=== PATIENT | female | born 1975 | race Caucasian/White ===

== ENCOUNTER 2017-01-14 06:15 | Day surgery (SDC) | payer OTHER ==
[~2017-01-14] VITALS: Ht 170.2 cm; Wt 108.0 kg
--- NOTE | ~2017-01-14 | S ---
[facility] [place] [address] SURGICAL PATH RPT PROCEDURE Name: RUTHY DUBOSE Amanda Room #: DEP [facility] Constance.#: [id number] Admission: 01/14/17 Date of : 75 Discharge: 01/15/17 Report #: [id number] Path Case #: [id number] PATHOLOGY REPORT COLLECTION DATE: 01/14/2017 RECEIVED DATE: 01/15/2017 SUBMITTING PHYS: Dr. Melanie Guillen OTHER PHYS: Dr. Aristeo Noel SPECIMEN(S) RECEIVED: A.Sleeve gastrectomy * * * * * * * * * * * * FINAL DIAGNOSIS: Stomach, partial sleeve gastrectomy: - Mild chronic reactive gastropathy along with foci of epithelial congestion and hemorrhage. - Negative for intestinal metaplasia or atrophy. - Negative for dysplasia or malignancy. PATHOLOGIST: Margie Olivier M.D. REPORT ELECTRONICALLY SIGNED BY: Margie Olivier M.D. DATE/TIME: 01/16/2017 17:11 * * * * * * * * * * * * GROSS PATHOLOGY: The specimen is received in formalin, labeled "Ruthy Malika sleeve gastrectomy". Received is a partial gastrectomy specimen with a stapled margin of resection measuring 18.8 x 5.5 x 3.2 cm in greatest dimensions. The serosal surface is pink-buenrostro, smooth and glistening in appearance. Opening the specimen reveals a light buenrostro mucosa with normal architectural folds. Multiple red-brown ulcerated areas are noted ranging in size from 0.3 to 0.5 cm in maximum dimensions. The specimen is submitted representatively in cassette A1, to include sections with aforementioned ulcers. (CAA; 01/15/2017) CLINICAL HISTORY: Morbid obesity INITIAL CPT CODE(S): A; 03678 Professional services performed by [facility] at [facility] [address] [place] [address] SURGICAL PATH RPT PROCEDURE Name: RUTHY DUBOSE Room #: DEP [facility] Star#: [id number] Admission: 01/14/17 Date of : 75 Discharge: 01/15/17 Report #: [id number] Path Case #: [id number] [address] [facility] , [place] [address] [facility] at [address] [place] [address], [facility] [address] [address]. [place] [address] PHONE: [phone] DIRECTOR: Librado Adams M.D. * * * END OF REPORT * * *
--- NOTE | ~2017-01-14 | O ---
[facility] [place] [address] OPERATIVE REPORT Name: RUTHY DUBOSE Room #: [facility].#: [id number] Admission: 01/14/17 Attend Phys: Melanie Guillen MD, Discharge: 01/15/17 Date of : 75 Report #: [id number] THIS REPORT FOR: //name// CC: Melanie Kuhn DATE OF SERVICE: 01/14/2017 PREOPERATIVE DIAGNOSES: 1. Snoring disorder. 2. Lumbago. 3. Bilateral lower extremity joint pain. 4. Chronic fatigue. 5. Gastroesophageal reflux disease. 6. Morbid obesity with a body mass index of 40.05. POSTOPERATIVE DIAGNOSES: 1. Snoring disorder. 2. Lumbago. 3. Bilateral lower extremity joint pain. 4. Chronic fatigue. 5. Gastroesophageal reflux disease. 6. Morbid obesity with a body mass index of 40.05. 7. Moderate sized type 3 paraesophageal hernia. PROCEDURES PERFORMED: 1. Laparoscopic sleeve gastrectomy. 2. Laparoscopic repair of a type 3 paraesophageal hernia with cruroplasty. 3. Thorough esophagogastroduodenoscopy (EGD). SURGEON: Melanie Guillen M.D. FLOOR INSTALLER: Ramón Noel M.D. ANESTHESIA: General endotracheal anesthesia. ESTIMATED BLOOD LOSS: Minimal (less than 5 mL). COMPLICATIONS: None appreciated. SPECIMENS: None. INDICATIONS: The patient is a 41-year-old morbidly obese female, who presented for evaluation for weight loss surgery as she has had a very long history of obesity and has had numerous weight loss attempts, including physician-directed weight loss plans, all to no avail. The patient had a BMI of [facility] [address] [place] [address] OPERATIVE REPORT Name: RUTHY DUBOSE Amanda Room #: DEP [facility] M.R.#: [id number] Admission: 01/14/17 Attend Phys: Melanie Guillen MD, Discharge: 01/15/17 Date of : 75 Report #: [id number] greater than 40 in addition to medical comorbidities of snoring disorder with likely obstructive sleep apnea, as she has had witnessed apneic episodes, as well as chronic back pain, joint pain, and fatigue, that are directly related to her obesity. The patient has undergone a thorough multimodal workup including evaluation and clearance from her primary care provider, transmission engineer, and a psychologist, who have all indicated she is medically fit to undergo an operation as well as it being medically necessary for weight loss and resolution of all of her comorbid conditions. She has also undergone a full 3-month attempts of diet and exercise, that are physician-directed, all without adequate weight loss thus far. As such, indication was for the above-mentioned procedures with intraoperative findings of a moderate sized type 3 paraesophageal hernia with both the gastroesophageal junction and a portion of the gastric fundus contained within the distal mediastinum. DESCRIPTION OF PROCEDURE: After explaining the risks, benefits and alternatives of the procedure with the patient in detail in the preoperative holding area and obtaining written consent, the patient was brought to the operating room and placed supine on the operating room table. After conducting a thorough timeout procedure verifying correct patient and procedure, the patient was given general endotracheal anesthesia. Once adequate anesthesia was obtained, her SCDs were hooked up to the pneumatic compression device. She was given a preoperative dose of antibiotics in line with SCIP protocol. The patient was also given a dose of Lovenox in the preoperative holding area to prevent venous thromboembolism. The patient was now positioned in the low lithotomy position with her legs in the Yellofin stirrups, and her abdomen was prepped and draped in the standard surgical sterile fashion. I began the procedure by performing a thorough EGD. The WTFast upper endoscope was used to intubate the oropharynx with ease. This was advanced down into the gastric lumen where the pylorus was identified and intubated. The scope was advanced to the second portion of the duodenum where slow careful withdrawal of the EGD scope showed no evidence of duodenitis, gastritis, esophagitis, mass, lesions, or ulcerations. A retroflexion view of the scope within the gastric lumen showed likely evidence of a hiatal hernia. The scope was straightened out until the tip was at the level of the pylorus where it was taped into position, and the stomach was fully desufflated. I then turned my attention to the operative portion of the procedure. After sterilely scrubbing, 5 mL of 0.5% Marcaine with epinephrine were used to anesthetize the skin in the right upper quadrant and approximately 3 cm cephalad to the umbilicus and 3 cm to the patient's right. A #15 bladed scalpel was used to create a 1.5 cm transverse skin incision at this location. A 15 mm Visiport was placed over 0 degree 5 mm laparoscope and was introduced through this incision site. Once intra-abdominal access was obtained visually, the obturator for the trocar and laparoscope were both removed, and the abdomen was insufflated to 15 mmHg using carbon dioxide gas. The laparoscope was changed to a 5-mm 30-degree laparoscope, which was reintroduced through this trocar. The entire abdomen was evaluated to ensure no injury upon entry and no pathology. I now placed three 5 mm working trocars in the patient's left [address] [place] [address] OPERATIVE REPORT Name: RUTHY DUBOSE Room #: DEP [facility] M.R.#: [id number] Admission: 01/14/17 Attend Phys: Melanie Guillen MD, Discharge: 01/15/17 Date of : 75 Report #: [id number] abdomen. The first was placed 1 cm superior to the umbilicus and 2 cm to the patient's left. A second one was placed 5 cm lateral to that, and third was placed in the extreme left lateral flank. All three additional 5 mm ports were placed under direct vision after anesthetizing the skin at each location with 5 mL of 0.5% Marcaine with epinephrine, and I had created small skin nicks using #15 bladed scalpel. The laparoscope was now removed and changed to 5 mm port just to the left of the patient's umbilicus, and she was placed in steep reverse Trendelenburg position. I now placed a Satish liver retractor in the subxiphoid location by anesthetizing the skin at that location with 5 mL of 0.5% Marcaine with epinephrine, and I had created a small skin catarina using #15 bladed scalpel. I then used the obturator from the 5 mm trocar to penetrate the fascia at this level and maneuvered the Satish liver retractor through this defect, where it was maneuvered up under the left lobe of the liver, and was held up against the posterior aspect of the anterior abdominal wall and was fixed into position using the Iron Interior Horticulturist device to stabilize it. We now had complete access to the stomach and hiatal region and saw obvious evidence of a type 3 paraesophageal hernia with both the gastroesophageal junction, and the fundus of the stomach contained within the distal mediastinum with an obvious hiatal defect. Photodocumentation of this was taken and provided to the patient and the permanent medical record. I now began my dissection after identifying our landmarks. The vein of Fall was identified overlying the pylorus. I measured 4 cm proximal to this location and began taking down the short gastric arteries from this location, all the way up the greater curvature of the stomach using the Harmonic scalpel for hemostasis, until I arrived upon the base of the left dima. I continued with inferior traction placed on the stomach, and I dissected up the left dima. There was a thick hiatal hernia sac present, and the dissection was carried anterior and medial. I then reflected the stomach laterally, and I opened the pars flaccida to identify the base of the right dima. I then dissected up the right dima to meet with the dissection from the left side and elevated the stomach and esophagus anteriorly and created a retroesophageal window from the patient's right to left sides with laparoscopic grasper. I then pulled the [place] drain through this area, and used it as a handle so as to prevent directly grabbing the tissues and potential damaging it. I now had full access to the hiatal region, and photodocumentation of the dissected hiatal hernia that was moderate sized and a type 3 paraesophageal hernia was seen. I now proceeded to repair the crural defect using numerous sutures of 0 Surgidac on the EndoStitch device to perform posterior plication of the defect, and bring it to where it was snug, but not extremely tight to the esophagus. This gave me an excellent cruroplasty repair of the type 3 paraesophageal hernia and hiatal defect. Shae drain was fully removed, and it should be noted that prior to performing the cruroplasty repair, I did perform an extensive mediastinal dissection to take down all adhesions in the mediastinum, that would try and attempt to cause the distal esophagus and proximal stomach to recoil backup into the mediastinum. I now had approximately 2 cm of intra-abdominal esophagus that was not under undue tension to recoil into the mediastinum. Now that the [place] drain was removed, the stomach was [facility] [address] [place] [address] OPERATIVE REPORT Name: RUTHY DUBOSE Room #: DEP [facility] M.R.#: [id number] Admission: 01/14/17 Attend Phys: Melanie Guillen MD, Discharge: 01/15/17 Date of : 75 Report #: [id number] elevated, and all posterior gastric attachments were taken down, staying well away from both the posterior aspect of the stomach and the anterior aspect of the pancreas, so as to prevent injury. The EGD scope was now positioned around and along the lesser curvature of the stomach and performed the sleeve gastrectomy portion of the procedure. The [place] 60 mm stapler with a black load utilizing Romero's Hilary-Strip buttressing material placed over it, and it was placed into the abdomen through the 15 mm trocar. This first firing of the stapler started at the location 4 cm proximal to the pylorus and fired right along, but not extremely tight to the scope, so as not to cause stricturing, especially at the incisura. An additional firing of a black load again utilizing Romero's Hilary-Strip buttressing material was carried out following the scope as a 34-Upper Sorbian bougie. Five firings of green loads, all utilizing Romero's Hilary-Strip buttressing material were carried out, following the scope as a bougie, all the way up to the left dima until the stomach was completely transected. The resection specimen was placed in the right upper quadrant for future retrieval, and the staple line was evaluated. We had a few areas of gentle oozing from the staple line, and as such, a laparoscopic clip dividing machine operator was used to obtain complete hemostasis at those areas of ooze, as well as the proximal and distal aspects. I then utilized 14 mL of Tisseel on the Duplospray device to coat the entirety of the staple line with fibrin glue. Once completely dry, normal saline was instilled in to the upper abdomen and the EGD scope was turned on, and the stomach was gently reinsufflated. The EGD scope was slowly removed, evaluating the staple line from the inside to ensure complete hemostasis, and we saw no evidence of bleeding whatsoever. In providing gentle insufflation, the stomach was held under the normal saline, that was instilled in the abdomen and a leak test was performed showing no evidence of bubbling whatsoever. The EGD scope was then used to fully desufflate the stomach, was removed via the oropharynx, passed off the field, I rescrubbed and enter the operative field once again. All normal saline was gently suctioned out of the abdomen and it ran clear throughout. It should be noted that the 5 mm port at the left midclavicular line had been upsized under direct vision to a 12 mm port after elongating the incision appropriately with a #15 bladed scalpel so as to provide entry for the EndoStitch device appropriately. I now proceeded to grasp the resection specimen through the 15 mm trocar and withdrew it out of the body with ease. Evaluation of the stomach, as well as the hiatal region at this juncture showed excellent orientation to the sleeved stomach with no twisting or bleeding whatsoever. The suture repair of the hiatal hernia appeared appropriate without recoil of the stomach back up into the mediastinum. I now proceeded to remove the Satish liver retractor, and the liver was healthy and uninjured. One final evaluation of the intraabdominal domain showed no evidence of pathology. I now closed the 15 and 12 mm fascial incision using 0 PDS suture on a Dennis-Sunshine needle under direct vision. These were tied down after reducing the insufflation pressure to 8 mmHg. The abdomen was now fully desufflated. All remaining ports were removed under direct vision. A 4-0 Monocryl was used in a standard subcuticular fashion for all skin incisions, and Dermabond glue was applied to all skin [facility] [address] [place] [address] OPERATIVE REPORT Name: RUTHY DUBOSE Room #: DEP [facility].#: [id number] Admission: 01/14/17 Attend Phys: Melanie Guillen MD, Discharge: 01/15/17 Date of : 75 Report #: [id number] wounds. The corner of the resection specimen that had been removed was trimmed away and normal saline was passively instilled into the resection specimen, yielding 1600 mL of normal saline in the resection specimen itself. At the end of the procedure, all instrument, needle, and sponge counts were correct. The patient tolerated the procedure without incident, was awakened in the operating room, and transitioned to the recovery room in stable condition with no apparent complications. <ELECTRONICALLY SIGNED> By: Melanie Guillen MD, FACS 01/16/17 [id number] Melanie Guillen MD, FACS /nt
[~2017-01-14 06:15] MED LIST: CELEBREX 200 M200 M1 PO; ESTROGEN; IBUPROFEN 800800 M1 PO; PRENATAL; PROGEST; ZOFRAN ODT4 MG PO
[2017-01-14 11:04] LABS: HEMATOCRIT 43.5 % (37.0-47.0)
[2017-01-14 11:24] VITALS: BP 129/85
[2017-01-14 16:00] VITALS: BP 135/87
[2017-01-14 16:30] VITALS: BP 124/79
[2017-01-14 17:00] VITALS: BP 123/78
[2017-01-14 21:07] VITALS: BP 126/78
[2017-01-15] VITALS: BP 123/79
[2017-01-15 04:45] VITALS: BP 119/69
[2017-01-15 05:56] LABS: HEMATOCRIT 36.2 % (37.0-47.0); MCH 31.1 pg (26.0-34.0); MCV 88.9 fL (80.0-100.0); RBC 4.07 mil/uL (4.20-5.00)
[2017-01-15 05:58] LABS: HEMOGLOBIN 12.7 gm/dL (12.0-15.0)
[2017-01-15 06:04] LABS: CALCIUM 8.5 mg/dL (8.5-10.1); CREATININE 0.7 mg/dL (0.6-1.0); POTASSIUM 3.4 mmol/L (3.5-5.1)
[2017-01-15 08:00] VITALS: BP 110/77
[2017-01-15] MEDS ORDERED: ZOFRAN ODT4 MG PO (08:46)
[2017-01-15 09:41] VITALS: BP 110/77
== END 2017-01-15 11:56 | disposition home or self-care (01) ==
LOC: OR 06:15 → TBA 06:15 → OR 10:35 → 4N 16:10 → OR 01-15 11:56
PROVIDERS: Surgery
DX: E66.01 Morbid (severe) obesity due to excess calories (principal); K44.9 Diaphragmatic hernia without obstruction or gangrene; K21.9 Gastro-esophageal reflux disease without esophagitis; M54.5 Low back pain; M25.50 Pain in unspecified joint; R53.82 Chronic fatigue, unspecified; R06.83 Snoring; Z68.41 Body mass index [BMI] 40.0-44.9, adult; Z90.49 Acquired absence of other specified parts of digestive tract; Z98.890 Other specified postprocedural states
CPT/HCPCS: 50010; 50101; 50222; 50249; 50386; 50555; 50558; 50739; 50740; 50962; 51436; 51437; 51489; 52182; 52265; 53307; 53311; 54022; 54118; 55245; 55326; 56462; 56525; 56526; 56531; 57092; 62110; 62900; 70005